=== PATIENT | female | born 2000 | race Caucasian/White ===

== ENCOUNTER 2020-01-30 10:44 | Emergency (ER) | payer OTHER, SELFPAY ==
--- NOTE | ~2020-01-30 | XR_ITS ---
EXAMINATION: XR foot RT min 3V EXAM DATE: 01/30/2020 11:25 INDICATION:. Initial encounter following injury, with pain of the right foot. TECHNIQUE: Right foot dorsoplantar, lateral and oblique projections obtained and reviewed. There is no prior study for comparison. FINDINGS: Right metatarsal bones unremarkable. There are no acute fractures or dislocations identifi ed. There is no subcutaneous gas. The soft tissue is unremarkable. There are no radiopaque foreig n bodies. IMPRESSION: 1. XR foot RT min 3V exam without acute osseous findings. Reviewed, dictated and finalized at location A. [employer]
[2020-01-30 11:12] VITALS: BP 125/78; PULSE 87; RESP 19; TEMP 36.6; O2SAT 98
--- NOTE | 2020-01-30 12:18 | ED.LOWEXIN ---
HPI - Extremity Injury (Lower) General Chief Complaint: Wound/Laceration Stated Complaint: think i broke my toe Time Seen by Provider: 01/30/20 12:06 History of Present Illness HPI Narrative: healthy 19 yo female presents to the ED for a toe injury. Yesterday while at work a trash can lid fell onto her right great toe. She now has pain and bruising to the toe. It is worse with bearing weight. She has been able to ambulate. Related Data Allergies Allergy/AdvReac Type Severity Reaction Status Date / Time amoxicillin Allergy Mild Rash Verified 05/03/19 08:44 Review of Systems Review of Systems: All systems reviewed & are unremarkable except as noted in HPI and below Constitutional: Constitutional: Denies fever(s) Cardiovascular: Cardiovascular: Denies chest pain Musculoskeletal: Musculoskeletal: Denies back pain Neurologic: Denies dizziness, Denies numbness and Denies weakness [facility] Past Medical History Medical History Healthy female adult Family History Family History Mother Patient's mother is in good health Father Patient's father is in good health Social History Social History Smoking status: Never smoker Second hand tobacco smoke exposure: No Alcohol intake: never Substance use: never Gender identity (if verbalized by the patient): Female Exam Const: General: healthy appearing, no acute distress and alert Orientation/consciousness: patient oriented x3 HENMT: Head: normal to inspection Resp: Effort & Inspection: normal respiratory effort Cardio: Other: 2+ right Dp and PT Skin: Other: bruising over right first toe. Minimal abrasion Neuro: General: patient oriented x3 and CN's II-XI intact bilaterally Speech: normal speech Gait exam (Neuro): Normal gait present Extrem: Other: No deformity Course Vital Signs Vital signs: Vital Signs Temperature 36.6 C 01/30/20 11:12 Pulse Rate 87 01/30/20 11:12 Respiratory Rate 19 01/30/20 11:12 Blood Pressure 125/78 01/30/20 11:12 Pulse Oximetry 98 01/30/20 11:12 Temperature 36.6 C 01/30/20 11:12 Pulse Rate 87 01/30/20 11:12 Respiratory Rate 19 01/30/20 11:12 Blood Pressure 125/78 01/30/20 11:12 Pulse Oximetry 98 01/30/20 11:12 MDM - Extremity Injury (Lower) Differential Diagnosis Differential diagnosis: Likely fracture of toe and other Medical Records Attestation: I reviewed the patient's medical records. Imaging Data Radiologist's impression: ITS Impressions Foot X-Ray 01/30/20 11:32 IMPRESSION: 1. XR foot RT min 3V exam without acute osseous findings. Discharge Plan Discharge Clinical Impression: Contusion Qualifiers: Encounter type: initial encounter Contusion area: foot Laterality: right Qualified Code(s): S90.31XA - Contusion of right foot, initial encounter Patient Disposition: Home, Self-Care Condition: Stable Instructions: Foot Contusion (ED) Prescriptions: No Action hydroxyzine HCl 25 mg tablet 25 mg PO QID PRN (Reason: itching) Qty: 40 RF: 0 triamcinolone acetonide 0.1 % cream 1 applic TOPICAL BID Qty: 30 RF: 0 Follow-up/Referrals: Shashi Benitez PA-C [Primary Care Provider] -
== END 2020-01-30 12:35 | disposition home or self-care (01) ==
PROVIDERS: Emergency Provider Emergency Medicine; PCP Physician Assistant
DX: S90.111A Contusion of right great toe without damage to nail, initial encounter (principal); W20.8XXA Other cause of strike by thrown, projected or falling object, initial encounter
CPT/HCPCS: 73630; 99283

== ENCOUNTER 2023-11-16 13:59 | Outpatient (CLI) | payer OTHER, SELFPAY ==
[2023-11-16 14:48] LABS: Strep Group A RT-PCR NOT DETECTED (Negative)
== END 2023-11-16 14:00 | disposition home or self-care (01) ==
PROVIDERS: PCP Internal Medicine; Visit Provider Internal Medicine
DX: J02.9 Acute pharyngitis, unspecified (principal)
CPT/HCPCS: 87651

== ENCOUNTER 2023-11-24 15:57 | Outpatient (CLI) | payer OTHER, SELFPAY ==
--- NOTE | ~2023-11-24 | US_ITS ---
EXAMINATION:US venous doppler LE BI INDICATION:Bilateral lower extremity swelling TECHNIQUE: Multiple grayscale, color flow and Doppler images of the right and left lower extremity de ep venous systems were obtained and reviewed. COMPARISON:No prior studies for comparison. FINDINGS: The common femoral, superficial femoral and popliteal veins demonstrate normal respiratory variation, augmentation and compressibility. Color flow is also seen within the posterior tibial, pe roneal, greater saphenous and profunda veins. IMPRESSION: 1: No lower extremity deep venous thrombosis. Reviewed, dictated and finalized at location B.
== END 2023-11-24 15:58 | disposition home or self-care (01) ==
PROVIDERS: PCP Internal Medicine; Visit Provider Internal Medicine
DX: M79.89 Other specified soft tissue disorders (principal)
CPT/HCPCS: 93970

== ENCOUNTER 2023-11-28 12:25 | Outpatient (CLI) | payer OTHER, SELFPAY ==
[2023-11-28 15:04] LABS: Free T4 Free Thyroxine 3.13 ng/mL (0.78-2.19)
== END 2023-11-28 12:26 | disposition home or self-care (01) ==
LOC: ANHLAB 12:27
PROVIDERS: PCP Internal Medicine; Visit Provider Internal Medicine
DX: R79.89 Other specified abnormal findings of blood chemistry (principal)
CPT/HCPCS: 36415; 84439

== ENCOUNTER 2023-12-04 10:28 | Outpatient (CLI) | payer OTHER, SELFPAY ==
[2023-12-07 04:18] LABS: Triiodothyronine T3 Free 11.7 pg/mL (2.3-4.2)
== END 2023-12-04 10:29 | disposition home or self-care (01) ==
LOC: ANHLAB 10:30
PROVIDERS: PCP Internal Medicine; Visit Provider Internal Medicine
DX: R79.89 Other specified abnormal findings of blood chemistry (principal)
CPT/HCPCS: 36415; 84481

== ENCOUNTER 2023-12-15 02:55 | Observation (INO) | payer OTHER, SELFPAY ==
[2023-12-15] VITALS (17 sets, daily range): BP systolic 92–138; BP diastolic 43–87; PULSE 93–137; RESP 15–20; TEMP 36.3–37.1; O2SAT 95–100
--- NOTE | ~2023-12-15 | CT_ITS ---
CT of the Abdomen and Pelvis: Indication: Abdominal pain, recent miscarriage Technique: 2.5 mm axial scans were obtained through the abdomen and pelvis following intravenous adm inistration of 100 cc of Omnipaque 350. Dose reduction technique was used on this scan by utilizing a utomated exposure control and iterative reconstruction technique. The dose-length product (DLP) was 2 85.28 mGy-cm. Findings: Scans through the lung bases are unremarkable. The liver, spleen, pancreas, gallbladder, adrenals and kidneys are within normal limits. No evidence of aortic aneurysm. No lymphadenopathy. No bowel obstruction or bowel wall thickening. There is no evidence to suggest acute appendicitis. Images through the pelvis were performed. Urinary bladder unremarkable. Somewhat masslike area noted towards the lower uterine segment. Probable minimal hemoperitoneum in the left paracolic gutter. Susp ected arcuate uterus. Impression: Masslike area at the lower uterine segment, which could reflect in progress. Minimal hemoperitoneum. 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 Reviewed, dictated and finalized at location . 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 Minimal hemoperitoneum. 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
--- NOTE | ~2023-12-15 | US_ITS ---
Pelvic ultrasound. Clinical History: First trimester , recent miscarriage, evaluate for ectopic Technique: Realtime transabdominal and transvaginal scanning of the pelvis was performed. Color flow Doppler and Doppler spectral analysis were performed. Findings: The uterus is anteverted. There is a somewhat irregular gestational sac at the lower uterin e segment or possibly just within the cervical canal with surrounding heterogeneous material, most co mpatible with in progress. Yolk sac present. No pole evident.. Neither ovary seen. No adnexal mass seen. There is no evidence of free fluid in the cul de sac. Impression: Suspected in progress, with irregular gestational sac at the lower uterine segment, possibly just entering the cervical canal. Probable surrounding blood products. Yolk sac present without visi ble pole. Reviewed, dictated and finalized at location M. TECH Impression: Suspected in progress, with irregular gestational sac at the lower [place] r[place] segment, possibly just entering the cervical canal. Probable surrounding b lood products. Yolk sac present without visible pole.
[2023-12-15] MEDS: LACTATED RINGERS 1,000 ML 999 ML IV CONT (03:46)
[2023-12-15] MEDS: HYDROmorphone HCL INJ (*CRX) 1 MG/ML SYR 0.5 MG IV PUSH (03:46)
--- NOTE | 2023-12-15 03:54 | ED.ABDPAIN ---
HPI - Abdominal Pain General Chief Complaint: Abdominal Pain Stated Complaint: abd pain Time Seen by Provider: 12/15/23 03:23 History of Present Illness HPI narrative: 22-year-old female presenting to the emergency room with left lower quadrant abdominal pain. She was approximately 5 weeks by last menstrual period and recently established with a new OBGYN 2 days prior. She apparently had an outpatient ultrasound which showed an intrauterine although I do not have any evidence of this or any documentation of this. Patient states that she has been passing blood clots and thinks she is having a miscarriage. Her OBGYN which she does not remember the name of gave her medication for potential retained products and she does not remember the name of the medication but thinks it begins with an M. Possibly methotrexate. Patient states that she was at work tonight and suddenly at 1:00 p.m. started having sharp pain in her left quadrant of the lower abdomen. Reported nausea and vomiting yesterday. Pain gradually got worse throughout the shift and she proceeded to the ER for evaluation. Endorses vaginal bleeding and discharge presently. No chest pain, shortness a breath, fever, chills. No back pain or flank pain. No urinary complaints or constipation. Related Data Allergies Allergy/AdvReac Type Severity Reaction Status Date / Time amoxicillin Allergy Mild Rash Verified 12/15/23 02:55 Review of Systems Review of Systems: As reviewed above in HPI [facility] Past Medical History Medical History Healthy female adult Family History Family History Mother Patient's mother is in good health Hyperlipemia Father Patient's father is in good health Hypertension Social History Social History Smoking status: Never smoker Second hand tobacco smoke exposure: Yes Alcohol intake: never Substance use: never Substance use type: does not use Do You Feel Safe in your Home?: Yes Lack of Transportation: No Lack of Food: Never True Current Housing: I Have Housing Concerned About Future Housing: No Difficulty Paying Gas/Electric Bills: No Difficulty Paying for Meds: No Currently Unemployed: No Education: Associate Degree Difficulty w/ Childcare or Family Care: No Living arrangements: with family Occupation/Education: occupation Additional occupation/education comments: [employer] Gender identity (if verbalized by the patient): Female Exam Narrative: GENERAL: Uncomfortable appearing but not in any acute distress, answering all my questions appropriate HEAD: [Normocephalic, atraumatic.] EYES: [PERRLA and EOMI.] ENT: Nares clear, no rhinorrhea or epistaxis. Mucous membranes moist. NECK: Supple. CHEST: [Clear to auscultation. No respiratory distress.] HEART: Tachycardic rate but regular rhythm, symmetric pulses. No murmur heard. Warm extremities ABDOMEN: [Soft, nondistended], focal tenderness to palpation of left lower quadrant, [No rigidity or guarding] EXTREMITIES: Normal range of motion. [No edema.] SKIN: Warm, dry, no rash. NEURO: [No focal deficits]. Alert and oriented [x3.] PSYCH: [Normal mood and affect.] Course Vital Signs Vital signs: Vital Signs Pulse Rate 120 H 12/15/23 03:02 Respiratory Rate 15 12/15/23 03:02 Blood Pressure 138/85 12/15/23 03:02 Pulse Oximetry 99 12/15/23 03:02 Oxygen Delivery Room Air 12/15/23 03:02 Temperature 36.9 C 12/15/23 03:09 Pulse Rate 132 H 12/15/23 05:08 Respiratory Rate 19 12/15/23 05:08 Blood Pressure 129/87 12/15/23 05:08 Pulse Oximetry 99 12/15/23 05:08 Oxygen Delivery Room Air 12/15/23 03:02 MDM - Abdominal Pain MDM Narrative Medical decision making narrative: 23-year-old female who is approximately 5-6 weeks by menstrual period. Patient presents to the emergency room with left lower quadrant abdominal pain. She states she states she is having a miscarriage and did see her new OBGYN 2 days ago and prescribed a medication for potential retained products. This is potentially methotrexate or misoprostol. She states that she had worsening abdominal pain since 1:00 p.m. about 14 hours prior to arrival to the ED. Gradually worsening and still localized to left lower quadrant. Endorses vaginal bleeding that is ongoing without any large clot passage of material passage. She is tachycardic here with blood pressure that is 138/85 and a pulse between 100-130. She is afebrile, uncomfortable appearing but not any acute distress. She has focal tenderness in left lower quadrant without any guarding or rigidity. Given her recent and vaginal bleeding diagnosis does include retained products, potential ectopic , versus ruptured ovarian cyst versus ovarian torsion. Intra-abdominal process is also possible such as colitis, diverticulitis but less likely. Ultrasonography is currently after hours however to rule out ectopic we did alert the radiology team to call him in for evaluation. CT scan was ordered in the meantime while awaiting ultrasound arrival. Ordered additional blood work. She was given Dilaudid for pain control and a fluid bolus per her tachycardia. Patient was frequently re-evaluated and had persistent tachycardia with a heart rate in the 130s to 150's. Her pain is 6/10 in intensity right now after dilaudid. She is still resting comfortably but is tachycardic. Pelvic obstetric ultrasound was interpreted by radiology with irregular cystic collection in the lower uterine segment with an apparent yolk sac, heterogenicity within endometrium suspicious for threatened/ongoing with surrounding blood products. White count of 11.8, hemoglobin stable at 13.0. Electrolyte panel within normal limits, normal renal and hepatic function panel. Quantitative hCG of 1038. CT scan read by radiology shows masslike structure in the lower uterine segment consistent with in process as well as probable minimal fluid/hemoperitoenium in the left paracolic gutter and suspected arcuate uterus. I discussed the case with the on-call OBGYN doctor Enriqueta. After discussing the patient's imaging findings, clinical exam and her tachycardia, recommendations were to admit the patient to a telemetry bed for observation with anticipation of seeing if the in process completes or if she would require any kind of procedure such as a D&C. Patient agreeable to admission at this time. Admit orders were placed and patient was admitted to a telemetry monitored bed. Medical Records Attestation: I reviewed the patient's medical records. Lab Data Attestation: I reviewed the patient's lab results. 12/15/23 03:50 12/15/23 03:50 Labs: Lab Results 12/15/23 12/15/23 12/15/23 Range/Units 03:50 04:11 04:14 WBC 11.8 H (4.5-10.0) K/mm3 RBC 4.42 (4.2-5.4) M/mm3 Hgb 13.0 (12.0-15.0) g/dL Hct 38.3 (37.0-47.0) % MCV 86.7 (80-100) fl MCH 29.4 (26-34) pg MCHC 33.9 (32-36) g/dl RDW 11.9 (11.5-14.5) % Plt Count 239 (150-375) k/mm3 MPV 8.9 (7.4-10.4) fl Immature Gran % (Auto) 0.3 (0-0.5) % Neut % (Auto) 64.6 (45.5-73.1) % Lymph % (Auto) 25.6 (18.3-44.2) % [place] % (Auto) 8.4 (2.6-8.5) % Eos % (Auto) 0.8 (0-4.4) % Baso % (Auto) 0.3 (0.2-1.2) % Lymph # (Auto) 3.01 (0.9-3.2) K/mm3 [place] # (Auto) 1.0 H (0.1-0.6) K/mm3 Eos # (Auto) 0.1 (0-0.3) K/mm3 Baso # (Auto) 0.0 (0.0-0.1) K/mm3 Abs Immat Gran (auto) 0.04 H (0.00-0.031) K/mm3 Absolute Neuts (auto) 7.6 H (1.3-6.7) K/mm3 Absolute Nucleated RBC 0.000 (0.0-0.012) K/mm3 Nucleated RBC % 0.0 (0.0-0.2) % PT 14.7 (11.1-14.7) Seconds INR 1.1 APTT 26.3 (22.3-36.8) Seconds Sodium 137 (137-145) mmol/L Potassium 3.8 (3.4-5.0) mmol/L Chloride 106 (98-107) mmol/L Carbon Dioxide 24 (22-30) mmol/L Anion Gap 7 (4-12) mmol/L BUN 7 (7-17) mg/dL Creatinine 0.60 L (0.7-1.0) mg/dL Estim Creat Clear Calc 101 ml/min Estimated GFR > 60 (59 - ) Glucose 104 (65-110) mg/dL Calcium 9.0 (8.4-10.2) mg/dL Total Bilirubin 0.7 (0.2-1.3) mg/dL AST 26 (14-36) U/L ALT 26 (6-35) U/L Alkaline Phosphatase 63 (38-126) U/L Total Protein 7.0 (6.3-8.2) g/dL Albumin 3.9 (3.5-5.1) g/dL Lipase 115 (23-300) U/L Beta HCG, Quant 1038.30 mIU/ML Urine Color Yellow (Yellow) Urine Appearance Clear (Clear) Urine pH 5.5 (5.0-9.0) Ur Specific [place] 1.006 (1.001-1.035) Urine Protein Negative (Negative) mg/dL Urine Glucose (UA) Negative (Negative) mg/dL Urine Ketones Negative (Negative) mg/dL Ur Blood (Man) 3+ H (Negative) Urine Nitrate Negative (Negative) Urine Bilirubin Negative (Negative) Urine Urobilinogen 0.2 (<2.0) mg/dL Leukocyte Esterase Rfl Negative (Negative) THOMPSON/UL Urine RBC 0-2 (0-2) /hpf Urine WBC 0-5 (0-3) /hpf Ur Squamous Epith Cells None seen (Few) /hpf Urine Bacteria None seen /hpf Urine Casts 0-2 POC Urine HCG, Qual Positive (Negative) Blood Type A Positive Antibody Screen Negative Screen Not Reportable Baby's Blood Type Not Reportable Baby's ABIGAIL Not Reportable Doses of RhIg Required 0 Imaging Data Attestation: I personally reviewed and interpreted this imaging study as follows: Radiologist's impression: ITS Impressions Obstetrics Ultrasound 12/15/23 05:44 Impression: Suspected in progress, with irregular gestational sac at the lower uterine segment, possibly just entering the cervical canal. Probable surrounding blood products. Yolk sac present without visible pole. Abdomen/Pelvis CT 12/15/23 05:46 Impression: Masslike area at the lower uterine segment, which could reflect in progress. Minimal hemoperitoneum. 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 Discharge Plan Discharge Clinical Impression: in first trimester, Vaginal bleeding Patient Disposition: Still a Patient Condition: Guarded Prognosis Instructions: Antibiotic Form Prescriptions: No Action propranolol 10 mg tablet 10 mg PO DAILY Qty: 30 2RF Follow-up/Referrals: Joey Nuñez DO [Primary Care Provider] - Time of Disposition: 06:04
[2023-12-15 03:55] LABS: Basophils Percent Auto 0.3 % (0.2-1.2); Eosinophils Absolute Auto 0.1 K/mm3 (0-0.3); Eosinophils Percent Auto 0.8 % (0-4.4); Hematocrit 38.3 % (37.0-47.0); Immature Granulocyte Absolute 0.04 K/mm3 (0.00-0.031); Immature Granulocyte Percent A 0.3 % (0-0.5); Lymphocytes Absolute Auto 3.01 K/mm3 (0.9-3.2); Lymphocytes Percent Auto 25.6 % (18.3-44.2); Mean Corpuscular HGB Conc 33.9 g/dl (32-36); Mean Corpuscular Hemoglobin 29.4 pg (26-34); Mean Corpuscular Volume 86.7 fl (80-100); Mean Platelet Volume 8.9 fl (7.4-10.4); Monocytes Percent Auto 8.4 % (2.6-8.5); Neutrophils Absolute Auto 7.6 K/mm3 (1.3-6.7); Neutrophils Percent Auto 64.6 % (45.5-73.1); Platelet Count Result 239 k/mm3 (150-375); Red Blood Count 4.42 M/mm3 (4.2-5.4); Red Cell Distribution Width 11.9 % (11.5-14.5); White Blood Count 11.8 K/mm3 (4.5-10.0)
[2023-12-15 04:06] LABS: Alanine Aminotransferase 26 U/L (6-35); Albumin Level 3.9 g/dL (3.5-5.1); Alkaline Phosphatase 63 U/L (38-126); Anion Gap 7 mmol/L (4-12); Aspartate Amino Transferase 26 U/L (14-36); Bilirubin,Total 0.7 mg/dL (0.2-1.3); Blood Urea Nitrogen 7 mg/dL (7-17); Carbon Dioxide 24 mmol/L (22-30); Chloride 106 mmol/L (98-107); Estimated CRCL calculation 101 ml/min; Estimated Glomerular Filt Rate > 60; Glucose 104 mg/dL (65-110); Lipase 115 U/L (23-300); Potassium 3.8 mmol/L (3.4-5.0); Sodium 137 mmol/L (137-145)
[2023-12-15 04:16] LABS: BEDSIDEPREGUCG Positive (Negative)
[2023-12-15 04:22] LABS: Add Urine Microscopic? YES; Appearance Urine Clear (Clear); Bacteria Urine None Seen /hpf; Bilirubin Urine Negative (Negative); Blood Urine 3+ (Negative); Color Urine Yellow (Yellow); Glucose Urine UA Negative (Negative); Ketones Urine Negative (Negative); Leukocyte Esterase Ur Negative LEU/UL (Negative); Nitrate Urine Negative (Negative); Non Pathogenic Casts 0-2; Protein Urine Negative (Negative); RBC Urine 0-2 /hpf (0-2); Specific Grav Ur 1.006 (1.001-1.035); Squamous Epithelial Cell Urine None Seen /hpf (Few); Urobilinogen Urine 0.2 mg/dL (<2.0); WBC Urine 0-5 /hpf (0-3); pH Urine 5.5 (5.0-9.0)
[2023-12-15 04:24] LABS: INR 1.1; Prothrombin Time 14.7 Seconds (11.1-14.7)
[2023-12-15 04:25] LABS: Partial Thromboplastin Time 26.3 Seconds (22.3-36.8)
[2023-12-15] MEDS: KETOROLAC 15 MG/ML VIAL (*BKC) IV PUSH (06:08)
[2023-12-15] MEDS: LACTATED RINGERS 1,000 ML 125 ML IV CONT ×2 (06:13→08:05)
--- NOTE | 2023-12-15 07:51 | ADMGEN ---
This patient, Kathi He, was admitted to [facility] Surg Room 309-01. Patient/family oriented to hospital policies and general routines including ID bracelet, bed and alarms, visiting hours, pain management, procedures, bathroom and other care routines, personal items, smoking policy, room service/diet, and visiting hours. Information on how to activate the Rapid Response Team has been discussed. Patient/Family are encouraged to report perceived risks to care and to ask questions if they do not understand what they are told or what they should do.
--- NOTE | 2023-12-15 10:49 | PM.IMHP ---
H&P: HPI History of Present Illness Date/Time: 12/15/23 10:49 Chief Complaint: Miscarriage and left lower quadrant pain Narrative: [age] who is admitted through the ER complaining of left lower quadrant pain bleeding. She has a positive HCG ultrasound CT show and the above the cervix benign the uterine fundus arcuate uterus she has had bleeding fairly heavily and under will undergo suction dilatation curettage risks PMFSH Past Medical History Medical History Healthy female adult Family History Family History Mother Patient's mother is in good health Hyperlipemia Father Patient's father is in good health Hypertension Social History Social History Smoking status: Current every day smoker Tobacco type: e-cigarettes/vaping Second hand tobacco smoke exposure: Yes Alcohol intake: never Substance use: never Substance use type: does not use Do You Feel Safe in your Home?: Yes Lack of Transportation: No Lack of Food: Never True Current Housing: I Have Housing Concerned About Future Housing: No Difficulty Paying Gas/Electric Bills: No Difficulty Paying for Meds: No Currently Unemployed: No Education: Associate Degree Difficulty w/ Childcare or Family Care: No Living arrangements: with family Occupation/Education: occupation Additional occupation/education comments: [employer] Gender identity (if verbalized by the patient): Female Spiritual care concerns: No Meds Home Medications and Allergies Home Medications Medication Instructions Recorded Confirmed Type propranolol 10 mg tablet 10 mg PO DAILY #30 tabs 12/08/23 12/15/23 Rx Allergies Allergy/AdvReac Type Severity Reaction Status Date / Time amoxicillin Allergy Mild Rash Verified 12/15/23 07:54 Vital Signs Vital Signs - 24 hr 12/15/23 03:02 12/15/23 03:09 12/15/23 05:08 Temperature 98.4 F Pulse Rate 120 H 116 H 132 H Respiratory Rate 15 20 19 Blood Pressure 138/85 138/85 129/87 Pulse Oximetry 99 100 99 Oxygen Delivery Room Air 12/15/23 08:07 12/15/23 09:39 12/15/23 08:00 Temperature 97.4 F L Pulse Rate 137 H 129 H Respiratory Rate 18 Blood Pressure 135/71 Pulse Oximetry 100 96 Oxygen Delivery Room Air Exam Const: General: cooperative, healthy appearing and comfortable Orientation/consciousness: oriented to person, oriented to place and oriented to time HENMT: Head: normal to inspection Resp: Effort & Inspection: normal respiratory effort Cardio: Rate: regular rate Rhythm: regular rhythm Heart sounds: S1 normal heart sound present and S2 normal heart sound present GI: Inspection: normal to inspection : External Female Exam: normal external appearance Speculum Exam - Vagina: normal appearance of the vagina and vaginal bleeding Speculum Exam - Cervix: normal appearance of the cervix Bimanual exam- vagina & uterus: enlarged Bimanual Exam- Adnexa, other: normal adnexae H&P: Results Labs Labs: Short CBC 12/15/23 Range/Units 03:50 WBC 11.8 H (4.5-10.0) K/mm3 Hgb 13.0 (12.0-15.0) g/dL Hct 38.3 (37.0-47.0) % Plt Count 239 (150-375) k/mm3 BMP 12/15/23 03:50 Sodium 137 Potassium 3.8 Chloride 106 Carbon Dioxide 24 BUN 7 Creatinine 0.60 L Glucose 104 Calcium 9.0 Liver Function 12/15/23 Range/Units 03:50 Total Bilirubin 0.7 (0.2-1.3) mg/dL AST 26 (14-36) U/L ALT 26 (6-35) U/L Alkaline Phosphatase 63 (38-126) U/L Albumin 3.9 (3.5-5.1) g/dL Urine 12/15/23 Range/Units 04:11 Urine Color Yellow (Yellow) Urine Appearance Clear (Clear) Urine pH 5.5 (5.0-9.0) Ur Specific [place] 1.006 (1.001-1.035) Urine Protein Negative (Negative) mg/dL Urine Glucose (UA) Negative (Negative) mg/dL Assessment and Plan Assessment and plan (1) in first trimester: Code(s): Z33.2 - Encounter for elective termination of Status: Acute (2) Vaginal bleeding: Code(s): N93.9 - Abnormal uterine and vaginal bleeding, unspecified Status: Acute Plan Proceed with suction dilatation curettage
--- NOTE | 2023-12-15 10:54 | WPDHPUPDATE1 ---
History and Physical Update Update Date/Time: 12/15/23 10:54 History and Physical has been reviewed, including an updated exam of the patient. There are NO changes in the patient's condition. Risks, benefits, and alternatives have been discussed and questions answered. Patient agrees to proceed with procedure.
[2023-12-15] MEDS: PROPRANOLOL HCL 10 MG TABLET PO (11:16)
--- NOTE | 2023-12-15 12:16 | PM.DS ---
DS: Admitting Diagnosis Discharge Date 12/15/2023 Admitting Diagnosis incomplete DS: Discharge Diagnosis Discharge Diagnosis (1) in first trimester: Code(s): Z33.2 - Encounter for elective termination of Status: Acute (2) Vaginal bleeding: Code(s): N93.9 - Abnormal uterine and vaginal bleeding, unspecified Status: Acute DS: Summary Hospital Course Reason for hospitalization: patient was admitted with vaginal bleeding and the 1st trimester Hospital Course: patient underwent suction dilatation curettage. Her postop care was unremarkable Time Spent with Patient Time attestation: Total time spent providing and/or coordinating discharge services: Exam Const: General: cooperative, healthy appearing and comfortable Nutritional Appearance: average body habitus Orientation/consciousness: oriented to person, oriented to place and oriented to time HENMT: Head: normal to inspection Resp: Effort & Inspection: normal respiratory effort Cardio: Rate: regular rate Rhythm: regular rhythm Heart sounds: S1 normal heart sound present and S2 normal heart sound present GI: Inspection: normal to inspection DS: Data Data Completed and Pending Labs on day of discharge: Labs from last 24 hours 12/15/23 12/15/23 12/15/23 04:14 04:11 03:50 WBC 11.8 H RBC 4.42 Hgb 13.0 Hct 38.3 MCV 86.7 MCH 29.4 MCHC 33.9 RDW 11.9 Plt Count 239 MPV 8.9 Immature Gran % (Auto) 0.3 Neut % (Auto) 64.6 Lymph % (Auto) 25.6 [place] % (Auto) 8.4 Eos % (Auto) 0.8 Baso % (Auto) 0.3 Lymph # (Auto) 3.01 [place] # (Auto) 1.0 H Eos # (Auto) 0.1 Baso # (Auto) 0.0 Abs Immat Gran (auto) 0.04 H Absolute Neuts (auto) 7.6 H Absolute Nucleated RBC 0.000 Nucleated RBC % 0.0 PT 14.7 INR 1.1 APTT 26.3 Sodium 137 Potassium 3.8 Chloride 106 Carbon Dioxide 24 Anion Gap 7 BUN 7 Creatinine 0.60 L Estim Creat Clear Calc 101 Estimated GFR > 60 Glucose 104 Calcium 9.0 Total Bilirubin 0.7 AST 26 ALT 26 Alkaline Phosphatase 63 Total Protein 7.0 Albumin 3.9 Lipase 115 Beta HCG, Quant 1038.30 Urine Color Yellow Urine Appearance Clear Urine pH 5.5 Ur Specific [place] 1.006 Urine Protein Negative Urine Glucose (UA) Negative Urine Ketones Negative Ur Blood (Man) 3+ H Urine Nitrate Negative Urine Bilirubin Negative Urine Urobilinogen 0.2 Leukocyte Esterase Rfl Negative Urine RBC 0-2 Urine WBC 0-5 Ur Squamous Epith Cells None seen Urine Bacteria None seen Urine Casts 0-2 POC Urine HCG, Qual Positive Blood Type A Positive Antibody Screen Negative Screen Not Reportable Baby's Blood Type Not Reportable Baby's ABIGAIL Not Reportable Doses of RhIg Required 0 Discharge Plan Discharge Attending physician on discharge: Sohan Mcbride Discharging Clinician: Sohan Mcbride Patient Disposition: Home, Self-Care Activity: may shower, no straining and pelvic rest Diet: heart healthy Patient Instructions: Antibiotic Form, Electronic Cigarettes and Your Health (GEN) Stand Alone Forms: General Discharge Information Follow-up/Referrals: Sohan Mcbride MD [Physician] - Joey Nuñez DO [Primary Care Provider] - Discharge Medications: New hydrocodone-acetaminophen 5-325 mg tablet 1 tablet PO Q4H PRN (Reason: pain) Qty: 10 0RF No Action propranolol 10 mg tablet 10 mg PO DAILY Qty: 30 2RF Date of admission: 12/15/23 06:00 Primary Care Provider: Joey Nuñez Admitting Provider: Anil Robison Attending physician on admission: Anil Robison Condition: Stable
--- NOTE | 2023-12-15 12:19 | P.PNAN_ITS ---
Anes - Initial Pre Proc Eval Procedure: Operation Date: 12/15/23 15:15 Proposed Procedures p Suction Dilatation and Curettage - Sohan Myers MD Date/Time: 12/15/23 12:19 Surgeon: Anil Robison MD Pre Op Diagnosis: Ongoing , tachycardia Patient Data Age: 23 Gender: F Height: 1.52 m Weight: 61.3 kg Last Vital Signs Temp 37.1 C 12/15/23 12:02 Pulse 118 H 12/15/23 12:02 Resp 16 12/15/23 12:02 BP 106/60 12/15/23 12:02 Pulse Ox 100 12/15/23 12:02 O2 Del Method Room Air 12/15/23 09:39 Allergies Allergy/AdvReac Type Severity Reaction Status Date / Time amoxicillin Allergy Mild Rash Verified 12/15/23 12:00 Home Medications Medication Instructions Recorded Confirmed Type propranolol 10 mg tablet 10 mg PO DAILY #30 tabs 12/08/23 12/15/23 Rx hydrocodone 5 mg-acetaminophen 325 1 tablet PO Q4H PRN pain #10 tabs 12/15/23 Rx mg tablet Laboratory Tests 12/15/23 12/15/23 12/15/23 03:50 04:11 04:14 WBC 11.8 H K/mm3 (4.5-10.0) RBC 4.42 M/mm3 (4.2-5.4) Hgb 13.0 g/dL (12.0-15.0) Hct 38.3 % (37.0-47.0) MCV 86.7 fl (80-100) MCH 29.4 pg (26-34) MCHC 33.9 g/dl (32-36) RDW 11.9 % (11.5-14.5) Plt Count 239 k/mm3 (150-375) MPV 8.9 fl (7.4-10.4) Immature Gran % (Auto) 0.3 % (0-0.5) Neut % (Auto) 64.6 % (45.5-73.1) Lymph % (Auto) 25.6 % (18.3-44.2) [place] % (Auto) 8.4 % (2.6-8.5) Eos % (Auto) 0.8 % (0-4.4) Baso % (Auto) 0.3 % (0.2-1.2) Lymph # (Auto) 3.01 K/mm3 (0.9-3.2) [place] # (Auto) 1.0 H K/mm3 (0.1-0.6) Eos # (Auto) 0.1 K/mm3 (0-0.3) Baso # (Auto) 0.0 K/mm3 (0.0-0.1) Abs Immat Gran (auto) 0.04 H K/mm3 (0.00-0.031) Absolute Neuts (auto) 7.6 H K/mm3 (1.3-6.7) Absolute Nucleated RBC 0.000 K/mm3 (0.0-0.012) Nucleated RBC % 0.0 % (0.0-0.2) PT 14.7 Seconds (11.1-14.7) INR 1.1 APTT 26.3 Seconds (22.3-36.8) Sodium 137 mmol/L (137-145) Potassium 3.8 mmol/L (3.4-5.0) Chloride 106 mmol/L (98-107) Carbon Dioxide 24 mmol/L (22-30) Anion Gap 7 mmol/L (4-12) BUN 7 mg/dL (7-17) Creatinine 0.60 L mg/dL (0.7-1.0) Estim Creat Clear Calc 101 ml/min Estimated GFR > 60 (59 - ) Glucose 104 mg/dL (65-110) Calcium 9.0 mg/dL (8.4-10.2) Total Bilirubin 0.7 mg/dL (0.2-1.3) AST 26 U/L (14-36) ALT 26 U/L (6-35) Alkaline Phosphatase 63 U/L (38-126) Total Protein 7.0 g/dL (6.3-8.2) Albumin 3.9 g/dL (3.5-5.1) Lipase 115 U/L (23-300) Beta HCG, Quant 1038.30 mIU/ML Urine Color Yellow (Yellow) Urine Appearance Clear (Clear) Urine pH 5.5 (5.0-9.0) Ur Specific [place] 1.006 (1.001-1.035) Urine Protein Negative mg/dL (Negative) Urine Glucose (UA) Negative mg/dL (Negative) Urine Ketones Negative mg/dL (Negative) Ur Blood (Man) 3+ H (Negative) Urine Nitrate Negative (Negative) Urine Bilirubin Negative (Negative) Urine Urobilinogen 0.2 mg/dL (<2.0) Leukocyte Esterase Rfl Negative [place]/UL (Negative) Urine RBC 0-2 /hpf (0-2) Urine WBC 0-5 /hpf (0-3) Ur Squamous Epith Cells None seen /hpf (Few) Urine Bacteria None seen /hpf Urine Casts 0-2 POC Urine HCG, Qual Positive (Negative) Blood Type A Positive Antibody Screen Negative Screen Not Reportable Baby's Blood Type Not Reportable Baby's ABIGAIL Not Reportable Doses of RhIg Required 0 Patient hx anesthesia problems: none Family hx anesthesia problems: none Results Review: All pre-operative results and documents have been reviewed as part of the pre- operative evaluation. [facility] Past Medical History Medical History (Updated 12/15/23 @ 12:27 by Corwin Beck DO) Hyperthyroidism Family History Family History Mother Patient's mother is in good health Hyperlipemia Father Patient's father is in good health Hypertension Social History Social History Smoking status: Current every day smoker Tobacco type: e-cigarettes/vaping Second hand tobacco smoke exposure: Yes Alcohol intake: never Substance use: never Substance use type: does not use Do You Feel Safe in your Home?: Yes Lack of Transportation: No Lack of Food: Never True Current Housing: I Have Housing Concerned About Future Housing: No Difficulty Paying Gas/Electric Bills: No Difficulty Paying for Meds: No Currently Unemployed: No Education: Associate Degree Difficulty w/ Childcare or Family Care: No Living arrangements: with family Occupation/Education: occupation Additional occupation/education comments: [employer] Gender identity (if verbalized by the patient): Female Spiritual care concerns: No Anes - Eval Final PreProcedure Day of Procedure 12/15/23 12:19 Patient weight: overweight Heart: regular rate and rhythm Lungs: clear to auscultation Airway: Mallampati scale class II Neurological: alert and oriented Last oral intake: >/= 8 hours ASA classification: II Emergent: no Anesthetic plan: proceed Anesthesia type and monitoring: general GIVS and standard monitoring Results Review: All pre-operative results and documents have been reviewed as part of the pre- operative evaluation. Informed Consent: The patient's anesthetic plan and its attendant risks and benefits were discussed with the patient/family/POA. Questions were solicited and answers provided to the satisfaction of the patient/family/POA.
[2023-12-15] MEDS: LIDOCAINE HCL 1% LOCAL INJ 20 ML VIAL 10 ML INFILTRATE (12:56)
--- NOTE | 2023-12-15 12:59 | W.PM.PROC2 ---
Procedure Note - Detailed Date of Procedure 12/15/23 Pre-op Diagnosis Ongoing , tachycardia Post-op Diagnosis Same Procedure Performed Suction dilatation curettage Surgeon Sohan Myers MD Anesthesia MAC and Local Indications 23 with incomplete AB Findings uterus sounded to 9cm. Tissue consistent products of conception Description of Procedure patient was prepped draped normal sterile fashion placed IV sedation speculum placed posterior fornix. Anterior lip of cervix grasped with single-tooth 2.5cc 1% xylocaine anesthesia placed at 2:10 a.m. the cervix uterus sounded cm serial dilatation with fragmented performed followed by passage of 10 curved suction curette moderate to large amount of tissue was removed. The instruments withdrawn the patient went to recovery in satisfactory condition. All sponge, needle, instrument counts were correct. She did not recall require RhoGAM secondary to being Rh positive Estimated Blood Loss 25 Drains No Packing No Pathology Yes Complications No immediate complications Condition Stable Disposition PACU
[2023-12-15] MEDS: LACTATED RINGERS 1,000 ML 30 ML IV CONT (13:05)
== END 2023-12-15 16:04 | disposition home or self-care (01) ==
LOC: ANHED 07:28 → ANH3MEDSUR 07:42
PROVIDERS: Admitting Provider Obstetrics & Gynecology; Emergency Provider Student in an Organized Health Care Education/Training Program; PCP Internal Medicine; Visit Provider Obstetrics & Gynecology
PROC: (CPT 59812; principal; 2023-12-15 15:15)
DX: O03.4 Incomplete spontaneous abortion without complication (principal)
CPT/HCPCS: 59812; 36415; 74177; 76801; 76817; 80053; 81001; 81025; 83690; 84702; 85025; 85461; 85610; 85730; 86850; 86900; 86901; 88305; 96361; 96374; 96375; 99285; A9270; G0378; J1100; J1171; J1885; J2003; J2250; J2405; J2704; J3010; J7120; Q9967

== ENCOUNTER 2023-12-28 07:33 | Outpatient (CLI) | payer OTHER, SELFPAY ==
[2023-12-28 10:10] LABS: Free T4 Free Thyroxine 4.46 ng/mL (0.78-2.19)
[2023-12-28 11:16] LABS: Thyroid Stimulating Hormone < 0.015 uIU/mL (0.465-4.680)
[2023-12-29 07:38] LABS: Triiodothyronine T3 Free 14.3 pg/mL (2.3-4.2)
[2024-01-01 09:07] LABS: Thyroid Peroxidase Antibodies 362 IU/mL (<9)
== END 2023-12-28 07:34 | disposition home or self-care (01) ==
LOC: ANHLAB 07:34
PROVIDERS: PCP Internal Medicine; Visit Provider Internal Medicine
DX: E05.90 Thyrotoxicosis, unspecified without thyrotoxic crisis or storm (principal); R79.89 Other specified abnormal findings of blood chemistry
CPT/HCPCS: 36415; 83519; 84439; 84443

== ENCOUNTER 2024-01-15 16:04 | Outpatient (CLI) | payer OTHER, SELFPAY ==
--- NOTE | ~2024-01-15 | US_ITS ---
US thyroid INDICATION: There are toxicosis TECHNIQUE: Real-time sonographic images of the thyroid gland were obtained. COMPARISON: No prior studies for comparison. FINDINGS: The right thyroid lobe measures 3.9 x 1.3 x 1.5 cm. The left thyroid lobe measures 4.1 x 1 .1 x 1.7 cm. There is heterogeneous echotexture and echogenicity throughout the thyroid gland. No dis crete nodules identified. Increased vascular flow is present. IMPRESSION: 1. Heterogeneous thyroid echotexture with increased vascularity. No discrete mass. Reviewed, dictated and finalized at location B. 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 Heterogeneous thyroid echotexture with increased vascularity. No discrete m ass.
== END 2024-01-15 16:05 | disposition home or self-care (01) ==
PROVIDERS: PCP Internal Medicine; Visit Provider Internal Medicine
DX: E05.90 Thyrotoxicosis, unspecified without thyrotoxic crisis or storm (principal)
CPT/HCPCS: 76536